=== PATIENT | male | born 1990 ===

== ENCOUNTER 2017-02-03 21:59 | Emergency (ER) | payer OTHER ==
[2017-02-03 22:03] VITALS: BP 141/93; PULSE 83; RESP 18; TEMP 98.7; O2SAT 99
[2017-02-03] MEDS ORDERED: Lidocaine 1% Inj (20ml) ONE (22:59)
[2017-02-03] MEDS: Lidocaine 1% (10 ml) Inj INFIL STA ×2 (23:05→23:25)
[2017-02-03] MEDS ORDERED: TDAP Vaccine 0.5 mL Syr IM ONE (23:16)
[2017-02-03] MEDS ORDERED: Oxycodone/Acetaminophen 5/325 mg Tab PO STA (23:58)
--- NOTE | 2017-02-04 00:01 | ED PDOC ---
HPI: Wound Care - HPI Time Seen by Provider: 02/03/17 22:03 Chief Complaint (Nursing): Abnormal Skin Integrity Chief Complaint (Provider): Right thumb, crush injury History Per: Patient History Of Present Illness: Pt states he was at work and a peice of stone dropped on his thumb. Pt reports unknown tetanus. Happened at work. Onset/Duration Of Symptoms: Mins Current Symptoms Are (Timing): Still Present Past Medical History Vital Signs: Last Vital Signs Temp 98.7 F 02/03/17 22:01 Pulse 83 02/03/17 22:01 Resp 18 02/03/17 22:01 BP 141/93 H 02/03/17 22:01 Pulse Ox 99 02/03/17 22:01 - Family History Family History: States: No Known Family Hx - Immunization History Hx Tetanus Toxoid Vaccination: No Hx Influenza Vaccination: No Hx Pneumococcal Vaccination: No - Home Medications Home Medications: Ambulatory Orders Medication Instructions Recorded Cephalexin [Keflex] 500 mg PO BID #14 capsule 02/03/17 oxyCODONE/Acetaminophen [Percocet 1 ea PO Q6H PRN #10 tab 02/04/17 5/325 mg Tab] - Allergies Allergies/Adverse Reactions: Allergies Allergy/AdvReac Type Severity Reaction Status Date / Time No Known Allergies Allergy Verified 02/03/17 22:01 Physical Exam - Reviewed Nursing Documentation Reviewed: Yes Vital Signs Reviewed: Yes - Physical Exam Appears: Positive for: Well, Non-toxic, No Acute Distress Head Exam: Positive for: ATRAUMATIC, NORMAL INSPECTION, NORMOCEPHALIC Skin: Positive for: Warm. Negative for: Normal Color (Partial nail avulsion, right thumb ) Eye Exam: Positive for: Normal appearance ENT: Positive for: Normal ENT Inspection Neck: Positive for: Normal, Painless ROM Respiratory: Negative for: Accessory Muscle Use, Respiratory Distress Back: Positive for: Normal Inspection Extremity: Positive for: Normal ROM, Tenderness, Swelling. Negative for: Deformity Neurologic/Psych: Positive for: Alert, Oriented - ECG O2 Sat by Pulse Oximetry: 99 Medical Decision Making Medical Decision Makin cc of lido without epi used for digital block. Nail removed. No nail bed laceration. Wound irrigated. Antibiotic ointment and dressing applied. Discussed wound care with patient. x-ray normal. Disposition - Clinical Impression Clinical Impression: Nail avulsion - Patient ED Disposition Is Patient to be Admitted: No Counseled Patient/Family Regarding: Diagnosis, Need For Followup, Rx Given - Disposition Referrals: [facility] [Outside] Disposition: Routine/Home Disposition Time: 23:59 Condition: STABLE Additional Instructions: Keep clean and dry with antibiotic ointment. Do not remove dressing for one day. Prescriptions: Cephalexin [Keflex] 500 mg PO BID #14 capsule oxyCODONE/Acetaminophen [Percocet 5/325 mg Tab] 1 ea PO Q6H PRN #10 tab PRN Reason: Pain, Severe (8-10) Instructions: Nail Avulsion (ED) Forms: [facility] ED School/Work Excuse Print Language: POLISH
--- NOTE | 2017-02-04 10:46 | RAD ---
PROCEDURE: Right Thumb radiographs. HISTORY: Crush injury COMPARISON: None. TECHNIQUE: AP radiograph of the right hand, as well as spot oblique and lateral images of thumb were obtained. FINDINGS: RIGHT THUMB: Normal right thumb, without fracture or focal lesion. Remainder of the right hand (as seen on the AP view) grossly unremarkable. JOINTS: Normal. SOFT TISSUES: Normal. OTHER FINDINGS: None. IMPRESSION: No acute fracture or dislocation.
== END 2017-02-04 00:48 | disposition home or self-care (01) ==
LOC: H.ER 21:59
DX: S61.101A Unspecified open wound of right thumb with damage to nail, initial encounter (principal); W22.8XXA Striking against or struck by other objects, initial encounter; Y93.89 Activity, other specified; Y92.69 Other specified industrial and construction area as the place of occurrence of the external cause; Y99.0 Civilian activity done for income or pay; Z23 Encounter for immunization

== ENCOUNTER 2017-05-11 21:56 | Emergency (ER) | payer OTHER ==
[2017-05-11 22:09] VITALS: BP 145/91; PULSE 72; RESP 16; TEMP 97.3; O2SAT 100
--- NOTE | 2017-05-11 22:37 | ED PDOC ---
Upper Extremity Pain/Injury Time Seen by Provider: 05/11/17 22:15 Chief Complaint (Nursing): Upper Extremity Problem/Injury Chief Complaint (Provider): neck pain, shoulder pain History Per: Patient Additional Complaint(s): 26-year-old right hand dominant male with no past medical history presents to emergency department with a 3 week history of right-sided neck pain and right shoulder pain. Patient states the pain shoots down his arm from time to time. He has not taken anything for pain relief. No associated chest pain, shortness of breath or dyspnea on exertion. He denies any known trauma or injury. Pain is better with rest, worse with movement. Past Medical History Reviewed: Historical Data, Nursing Documentation, Vital Signs Vital Signs: Last Vital Signs Temp 97.3 F L 05/11/17 22:06 Pulse 72 05/11/17 22:06 Resp 16 05/11/17 22:06 BP 145/91 H 05/11/17 22:06 Pulse Ox 100 05/11/17 22:06 - Medical History PMH: No Chronic Diseases - Surgical History Surgical History: No Surg Hx - Family History Family History: States: No Known Family Hx - Living Arrangements Living Arrangements: With Family - Social History Current smoker - smoking cessation education provided: No Alcohol: None Drugs: Denies - Home Medications Home Medications: Ambulatory Orders Medication Instructions Recorded Cephalexin [Keflex] 500 mg PO BID #14 capsule 02/03/17 oxyCODONE/Acetaminophen [Percocet 1 ea PO Q6H PRN #10 tab 02/04/17 5/325 mg Tab] Cyclobenzaprine [Cyclobenzaprine 10 mg PO TID PRN #20 tab 05/11/17 HCl] Naproxen [Naprosyn] 500 mg PO BID #20 tab 05/11/17 - Allergies Allergies/Adverse Reactions: Allergies Allergy/AdvReac Type Severity Reaction Status Date / Time No Known Allergies Allergy Verified 05/11/17 22:05 Review of Systems ROS Statement: Except As Marked, All Systems Reviewed And Found Negative Constitutional: Negative for: Fever Cardiovascular: Negative for: Chest Pain Musculoskeletal: Positive for: Neck Pain, Shoulder Pain Neurological: Negative for: Headache, Dizziness Physical Exam - Reviewed Nursing Documentation Reviewed: Yes Vital Signs Reviewed: Yes - Physical Exam Appears: Positive for: Well, Non-toxic, No Acute Distress Skin: Negative for: Rash Eye Exam: Positive for: Normal appearance, EOMI, PERRL Neck: Positive for: Pain On Movement Of Neck (muscle spasm right paraspinal region extending into anterior right shoulder) Cardiovascular/Chest: Positive for: Regular Rate, Rhythm, Chest Non Tender Respiratory: Positive for: Normal Breath Sounds. Negative for: Respiratory Distress Extremity: Positive for: Normal ROM (full rom right shoulder, elbow and wrist, strong right hand [employer]) Neurologic/Psych: Positive for: Alert, Oriented. Negative for: Motor/Sensory Deficits - ECG O2 Sat by Pulse Oximetry: 100 Pulse Ox Interpretation: Normal Medical Decision Making Medical Decision Making: Impression: cervical muscle strain, shoulder strain, atraumatic No neuro deficits noted on exam Plan: IM toradol Pain improved after toradol. Rx naprosyn and flexeril given. Patient was referred to ortho hand stone polisher for follow up. Disposition - Clinical Impression Clinical Impression: Cervical strain, Shoulder strain - Patient ED Disposition Is Patient to be Admitted: No Counseled Patient/Family Regarding: Diagnosis, Need For Followup, Rx Given - Disposition Referrals: Guanakito Joshua MD [Staff Provider] - Disposition: Routine/Home Disposition Time: 22:41 Condition: STABLE Additional Instructions: Rest affected area. Take rx meds as directed as needed for pain. Follow up with orthopedist in 2-3 days. Prescriptions: Cyclobenzaprine [Cyclobenzaprine HCl] 10 mg PO TID PRN #20 tab PRN Reason: Muscle Spasm Naproxen [Naprosyn] 500 mg PO BID #20 tab Instructions: Shoulder Sprain (ED), Cervical Sprain (ED) Forms: [employer] (Urdu) Print Language: SLOVAK
== END 2017-05-11 23:15 | disposition home or self-care (01) ==
LOC: H.ER 21:56
DX: S16.1XXA Strain of muscle, fascia and tendon at neck level, initial encounter (principal); S46.911A Strain of unspecified muscle, fascia and tendon at shoulder and upper arm level, right arm, initial encounter; X50.9XXA Other and unspecified overexertion or strenuous movements or postures, initial encounter; Y92.89 Other specified places as the place of occurrence of the external cause